=== PATIENT | male | born 1960 | race Caucasian/White ===

== ENCOUNTER 2023-02-12 20:33 | Emergency (ER) | payer MEDICARE, SELFPAY ==
[2023-02-12 20:37] VITALS: BP 122/62; PULSE 94; RESP 18; TEMP 36.2; O2SAT 92
--- NOTE | 2023-02-12 22:25 | PC.NURSE ---
Pt here for leaking blood at PICC entrance site. Small amt of blood noted under dressing. Both ports flush and have good blood return. Denies any pain. Awaiting ERP eval.
[2023-02-12 23:00] VITALS: BP 118/53; PULSE 85; RESP 14; O2SAT 92
--- NOTE | 2023-02-12 23:44 | ED.GENADULT ---
HPI - General Adult General Chief complaint: Unspecified Stated complaint: Bleeding PICC line Time Seen by Provider: 02/12/23 23:02 History of Present Illness HPI narrative: Patient 62-year-old gentleman who presents the emergency department with chief complaint of bleeding from PICC line site patient reports that he has had some oozing from the site since he had the PICC line put in and reports that today he had a little bit more bleeding talk to his home health nurse who recommended that he come to the emergency department for evaluation the patient denies chest pain denies being on blood thinners other than the heparin flush patient states he had no trauma to the area. Related Data Allergies Allergy/AdvReac Type Severity Reaction Status Date / Time codeine Allergy Unknown Verified 06/23/14 12:53 erythromycin base Allergy Unknown Verified 06/23/14 12:53 morphine Allergy Unknown Verified 06/23/14 12:53 Review of Systems Review of Systems: A 10 system review of systems was completed on the patient and is negative except for what is stated in the HPI. Nursing and ancillary documentation was reviewed. [facility] Family History Family History Other Diabetes mellitus Family history of arthritis Family history of gout Family history of malignant neoplasm Hypertension Social History Social History Alcohol intake: never Exam Narrative: GENERAL: Well-appearing, well-nourished, and in no acute distress. HEAD: Normocephalic, atraumatic. EYES: PERRLA and EOMI. ENT: Nares clear, no rhinorrhea or epistaxis. Mucous membranes moist. NECK: Supple. CHEST: Clear to auscultation. No respiratory distress. HEART: Regular rate and rhythm. No murmur heard. Normal peripheral pulses. ABDOMEN: Soft, nontender, nondistended, normal active bowel sounds. EXTREMITIES: Normal range of motion. No edema. There is a PICC line present in the right upper extremity there is no active bleeding there is dried blood at the incision site SKIN: Warm, dry, no rash. NEURO: No focal deficits. Alert and oriented x3. PSYCH: Normal mood and affect. Course Vital Signs Vital signs: Vital Signs Temperature 36.2 C L 02/12/23 20:37 Pulse Rate 94 02/12/23 20:37 Respiratory Rate 18 02/12/23 20:37 Blood Pressure 122/62 02/12/23 20:37 Pulse Oximetry 92 02/12/23 20:37 Oxygen Delivery Room Air 02/12/23 20:37 Temperature 36.2 C L 02/12/23 20:37 Pulse Rate 94 02/12/23 20:37 Respiratory Rate 18 02/12/23 20:37 Blood Pressure 122/62 02/12/23 20:37 Pulse Oximetry 92 02/12/23 20:37 Oxygen Delivery Room Air 02/12/23 20:37 Medical Decision Making MDM Narrative Medical decision making narrative: The dressing was taken down and there is no active bleeding at this time. Patient was observed and the wound will be redressed and the patient will be discharged to follow-up with his PICC line care team Vital Signs Vital Signs: Vital Signs Temperature 36.2 C L 02/12/23 20:37 Pulse Rate 94 02/12/23 20:37 Respiratory Rate 18 02/12/23 20:37 Blood Pressure 122/62 02/12/23 20:37 Pulse Oximetry 92 02/12/23 20:37 Oxygen Delivery Room Air 02/12/23 20:37 Temperature 36.2 C L 02/12/23 20:37 Pulse Rate 94 02/12/23 20:37 Respiratory Rate 18 02/12/23 20:37 Blood Pressure 122/62 02/12/23 20:37 Pulse Oximetry 92 02/12/23 20:37 Oxygen Delivery Room Air 02/12/23 20:37 Discharge Plan Discharge Clinical Impression: Bleeding from peripherally inserted central catheter (PICC) Patient Disposition: Home, Self-Care Condition: Stable Instructions: Antibiotic Form, How to Care for Your PICC (Peripherally Inserted Central Catheter) (ED) Additional Instructions: Please follow-up with your PICC line nurse. If there appears to be significant amount of b
[2023-02-13] VITALS: BP 122/59; PULSE 87; RESP 14; O2SAT 92
--- NOTE | 2023-02-13 00:06 | PC.NURSE ---
Pts picc line redressed with what supplies are available in ED. Suggested pt called his home health provider to come out tomorrow for a redress.
== END 2023-02-13 00:10 | disposition home or self-care (01) ==
PROVIDERS: Emergency Provider Emergency Medicine; PCP Family Medicine
DX: T82.838A Hemorrhage due to vascular prosthetic devices, implants and grafts, initial encounter (principal); Y84.8 Other medical procedures as the cause of abnormal reaction of the patient, or of later complication, without mention of misadventure at the time of the procedure
CPT/HCPCS: 99282